=== PATIENT | male | born 1945 | race Caucasian/White ===

== ENCOUNTER 2017-09-08 10:01 | Day surgery (SDC) | payer MEDICARE, BC ==
[~2017-09-08] VITALS: Ht 185.4 cm; Wt 102.3 kg
--- NOTE | ~2017-09-08 | OP ---
PATIENT NAME: KIESHA CARRINGTON MEDICAL RECORD: [id number] :47 LOCATION:[facility] ADMISSION DATE: SURGEON: LAI VAZQUEZ MD DATE OF OPERATION: 09/08/2017 PROCEDURE: Colonoscopy with biopsy and polypectomy. REFERRING PHYSICIAN: Dr. Lisa Darling. INDICATIONS: Mr. Carrington is a delightful 72-year-old gentleman with a history of coronary artery disease, atrial fibrillation with a pacemaker placement, presents for outpatient screening colonoscopy. PREMEDICATIONS: Total IV anesthesia (ASA 3, coronary artery disease) propofol 280 mg. INSTRUMENT: Olympus video colonoscope, pediatric. PROCEDURE AND FINDINGS: After receiving informed consent, Mr. Carrington was placed in left lateral decubitus position and sedated as per anesthesia. After achieving an adequate level of sedation, a digital rectal exam was performed that showed no external hemorrhoidal tags, fissures or fistulas, normal sphincter tone, no palpable rectal masses. The colonoscope was introduced per rectally and advanced to the cecum without difficulty. The cecum, IC valve, and appendiceal orifice were identified. As the colonoscope was withdrawn, careful inspection was made of the meraz of colon. Overall, mucosa had normal vascular and fold pattern. There were a few small diverticula seen scattered in the ascending, transverse and sigmoid colon. In the mid transverse colon was a 1.5 to 2 cm carpet type polyp that was removed with hot biopsy forceps technique and the descending colon was a 0.3 to 0.5 cm sessile polyp of which multiple cold biopsies were obtained. In the sigmoid colon was a 0.3 to 0.5 cm sessile polyp of which multiple cold biopsies were obtained. Retroflexion in the rectum showed moderate internal hemorrhoids. A good prep was present. Mr. Carrington tolerated the procedure well, no immediate complications. Withdrawal time was 10 minutes. ASSESSMENT: 1. Transverse colon polyp, status post polypectomy. 2. Small descending colon polyp, status post biopsy. 3. Small sigmoid polyp, status post biopsy. 4. Mild pandiverticulosis coli. 5. Moderate internal hemorrhoids. RECOMMENDATIONS: 1. Follow up histopathology. 2. Avoid aspirin, nonsteroidal anti-inflammatory drugs and YEAGER-2 inhibitors for 14 days post polypectomy. 3. Resume Coumadin tomorrow. PLAN: Followup colonoscopy in 2 years. TRANSINT:[id number] Voice Confirmation ID: [id number] DOCUMENT ID: [id number] OPERATIVE REPORT [id number] KIESHA CARRINGTON TERRI MD at 1206 CC: LISA DARLING MD [id number] DICTATION DATE: 09/08/17 1520 ALLIGATOR TRAPPER: 09/08/17 1559 [facility] 09/08/17 [place] [id number] [place] [id number]
[2017-09-08 10:34] LABS: CALC OSMOLALITY 285 mosm/kg (275-300); CALCIUM 8.8 mg/dL (8.5-10.1); CARBON DIOXIDE 26.3 mmol/L (21.0-32.0); CHLORIDE - SERUM 107 mmol/L (98-107); GLUCOSE 106 mg/dL (74-106); POTASSIUM - SERUM 4.4 mmol/L (3.5-5.1); SODIUM 144 mmol/L (136-145); UREA NITROGEN 11 mg/dL (7-18); eGFR NON AFRICAN AMERICAN 78 mL/min (90-120)
[2017-09-08 10:48] LABS: BASOPHILS 0.4 % (0-2); EOSINOPHILS 2.3 % (0-7); HEMATOCRIT 37.6 % (42.0-54.0); IMMATURE GRANULOCYTES 0.2 % (0-5); LYMPHOCYTES 16.1 % (15-50); MCHC 34.6 g/dL (31.0-37.0); MCV 86.6 fL (80.0-100.0); MONOCYTES 7.5 % (2-11); NEUTROPHILS 73.5 % (40-80); PLATELET COUNT 167 10x3/uL (130-400); RBC 4.34 10x6/uL (4.20-6.10); RDW 13.8 % (11.5-14.5); WBC 5.2 10x3/uL (4.8-10.8)
[2017-09-08] MEDS ORDERED: SYNTHROID25 MCG PO (12:56)
[2017-09-08] MEDS ORDERED: COREG25 MG PO (12:56)
[2017-09-08] MEDS ORDERED: PROPAFENONE HC225 MG (12:57)
[2017-09-08] MEDS ORDERED: PLAVIX75 MG PO (12:58)
[2017-09-08] MEDS ORDERED: TRAZODONE HCL50 MG PO (12:58)
[2017-09-08] MEDS ORDERED: AVAPRO300 MG PO (12:58)
[2017-09-08] MEDS ORDERED: ISOSORBIDE MON120 M1 PO (12:59)
[2017-09-08] MEDS ORDERED: NEURONTIN 300300 MG (12:59)
[2017-09-08] MEDS ORDERED: NITROQUICK0.4 MG SL (12:59)
[2017-09-08] MEDS ORDERED: ZETIA10 MG PO (13:00)
[2017-09-08] MEDS ORDERED: ZOCOR80 MG (13:00)
[2017-09-08] MEDS ORDERED: RANEXA500 MG PO (13:00)
[2017-09-08 13:10] VITALS: BP 127/83; Ht 185.4 cm; Wt 102.3 kg
[2017-09-08 13:27] LABS: APTT 26.3 SECONDS (22.8-39.4); INR 1.2 (0.85-1.17); PROTIME 14.8 SECONDS (11.6-15.0)
== END 2017-09-08 16:30 | disposition home or self-care (01) ==
LOC: D.OPS 10:01
PROVIDERS: Anesthesiology
DX: K63.5 Polyp of colon (principal); Z12.11 Encounter for screening for malignant neoplasm of colon; I25.10 Atherosclerotic heart disease of native coronary artery without angina pectoris; I48.91 Unspecified atrial fibrillation; Z95.0 Presence of cardiac pacemaker; K57.90 Diverticulosis of intestine, part unspecified, without perforation or abscess without bleeding; K64.8 Other hemorrhoids

== ENCOUNTER 2020-06-19 11:02 | Day surgery (SDC) | payer MEDICARE, BC ==
[~2020-06-19] VITALS: Ht 185.4 cm; Wt 107.7 kg
[~2020-06-19 11:02] MED LIST: AVAPRO300 MG PO; COREG25 MG PO; ISOSORBIDE MON120 M1 PO; NEURONTIN 300300 MG; NITROQUICK0.4 MG SL; PLAVIX75 MG PO; PROPAFENONE HC225 MG; RANEXA500 MG PO; SYNTHROID25 MCG PO; TRAZODONE HCL50 MG PO; ZETIA10 MG PO; ZOCOR80 MG
[2020-06-19 11:31] LABS: ANION GAP 13.9 mmol/L (8-16); CARBON DIOXIDE 26.7 mmol/L (21.0-32.0); CREATININE - SERUM 1.2 mg/dL (0.6-1.3); POTASSIUM - SERUM 4.6 mmol/L (3.5-5.1)
[2020-06-19] MEDS ORDERED: ENTRESTO 24 MG1 EACH PO (11:49)
[2020-06-19] MEDS ORDERED: ENTRESTO 49 MG1 EACH PO (11:50)
[2020-06-19 11:56] VITALS: BP 137/83; Ht 185.4 cm; Wt 107.7 kg
[2020-06-19 12:24] LABS: INR 1.2 (0.85-1.17); PROTIME 14.1 SECONDS (11.6-15.0)
[2020-06-19 12:25] LABS: BASOPHILS 0.4 % (0-2); EOSINOPHILS 1.6 % (0-7); HEMATOCRIT 41.2 % (42.0-54.0); HEMOGLOBIN 14.1 g/dL (13.5-17.5); IMMATURE GRANULOCYTES 0.1 % (0-5); LYMPHOCYTE ABS# 0.95 10x3/uL (1.32-3.57); LYMPHOCYTES 13.8 % (15-50); MCH 30.7 pg (26.0-34.0); MCHC 34.2 g/dL (31.0-37.0); MCV 89.8 fL (80.0-100.0); MEAN PLATELET VOLUME 10.6 fL (7.4-10.4); MONOCYTES 10.1 % (2-11); RBC 4.59 10x6/uL (4.20-6.10); RDW 13.1 % (11.5-14.5); WBC 6.9 10x3/uL (4.8-10.8)
[2020-06-19 12:26] LABS: PLATELET COUNT 204 10x3/uL (130-400)
--- NOTE | 2020-06-19 13:45 | NUR ---
FAXED ORDER FOR APPT TO [facility] IN 2-3 WKS DC TEACHING COMPLETE. CLARIFIED WITH MD FOR PT TO RESTART WARFARIN TOMORROW. PT AND SPOUSE VERBALIZE UNDERSTANDING. PIV DC'D WITH CATHETER INTACT. SPOUSE HELPING TO GET DRESSED 1415 PT DC'D VIA WC BY THIS NURSE WITH ALL BELONGINGS AND DC PACKET.
--- NOTE | 2020-06-20 14:17 | OP ---
PATIENT NAME: KIESHA CARRINGTON MEDICAL RECORD: [id number] :47 LOCATION:[facility] ADMISSION DATE: SURGEON: MARYLOU FENTON MD DATE OF OPERATION: 06/19/2020 PROCEDURE: EGD and colonoscopy. PREOPERATIVE DIAGNOSES: Abdominal pain, dysphagia, history of polyps. MEDICATION: Propofol per anesthesia. DESCRIPTION OF EGD PROCEDURE: Upper endoscopy was performed. The endoscope was advanced through the mouth and advanced to the second part of the duodenum. The proximal and mid esophagus were normal. In the distal esophagus was a mild esophageal stricture. This was dilated with an 18, 19, and 20 mm balloon. In the gastric body was erythema consistent with gastritis. Random gastric biopsies were taken. The entire examined duodenum was normal. The patient tolerated the procedure well. FINAL DIAGNOSES: Mild esophageal stricture dilated with an 18, 19, and 20 mm balloon. Gastritis. Normal duodenum. PLAN: Check histology results. Advance diet. I will write a prescription for Protonix today for this patient and have him follow up in the office. DESCRIPTION OF COLONOSCOPY PROCEDURE: Colonoscopy was performed. The colonoscope was inserted through the rectum and advanced to the cecum, identified by the ileocecal valve and the appendiceal orifice. The quality of the prep was good. There were 2 small polyps seen in the transverse colon and ascending colon. These were removed with hot biopsy forceps. The remainder of the exam was normal other than large internal hemorrhoids viewed on retroflexion. The patient tolerated the procedure well. FINAL DIAGNOSES: Transverse colon polyp and ascending colon polyp, each removed with hot biopsy forceps polypectomy. Large internal hemorrhoids. PLAN: Advance diet, fiber supplements. Return to GI office. TRANSINT:[id number] Voice Confirmation ID: [id number] DOCUMENT ID: [id number] MARYLOU FENTON MD at 1417 CC: [id number] DICTATION DATE: 06/19/20 1321 [place] AUDITOR: 06/19/20 1457 [facility] 06/19/[address] [address]
== END 2020-06-19 14:15 | disposition home or self-care (01) ==
LOC: D.OPS 11:02
PROVIDERS: Anesthesiology; ATTEND Internal Medicine Gastroenterology
DX: R10.9 Unspecified abdominal pain (principal); R13.10 Dysphagia, unspecified; Z86.010 Personal history of colon polyps; K22.2 Esophageal obstruction; K29.70 Gastritis, unspecified, without bleeding; K63.5 Polyp of colon